=== PATIENT | male | born 1945 | race Caucasian/White ===

== ENCOUNTER 2016-10-22 06:48 | Day surgery (SDC) | payer OTHER ==
[~2016-10-22] VITALS: Ht 167.6 cm; Wt 69.0 kg
[~2016-10-22 06:48] MED LIST: AMIODARONE HCL200 MG PO; ASPIR-LOW81 MG PO; CITALOPRAM HBR40 MG PO; GABAPENTIN300 MG PO; IMDUR60 MG PO; LANTUS 10100 UNITS/ SC; LEVOTHYROXINE125 MCG PO; METOPROLOL TART25 MG PO; NOVOLOG 10100 UNITS/ SC; OMEPRAZOLE20 MG PO; PLAVIX75 MG PO; TUMS500 MG PO
[2016-10-22 07:43] LABS: POINT-OF-CARE METER ID UU13113696
[2016-10-22 08:54] LABS: METH RESISTANT S AUREUS PCR NEGATIVE (NEGATIVE)
[2016-10-22 08:58] LABS: PROBE CHECK PASS; SPECIMEN PROCESSING CONTROL PASS
== END 2016-10-22 10:00 | disposition home or self-care (01) ==
LOC: CATH 06:48
PROVIDERS: Surgery
DX: T82.858A Stenosis of other vascular prosthetic devices, implants and grafts, initial encounter (principal); Y83.2 Surgical operation with anastomosis, bypass or graft as the cause of abnormal reaction of the patient, or of later complication, without mention of misadventure at the time of the procedure; E11.22 Type 2 diabetes mellitus with diabetic chronic kidney disease; N18.6 End stage renal disease; Z99.2 Dependence on renal dialysis; I25.10 Atherosclerotic heart disease of native coronary artery without angina pectoris; I25.2 Old myocardial infarction; M19.90 Unspecified osteoarthritis, unspecified site; Z85.51 Personal history of malignant neoplasm of bladder; Z85.05 Personal history of malignant neoplasm of liver; Z89.519 Acquired absence of unspecified leg below knee; Z79.82 Long term (current) use of aspirin; Z87.891 Personal history of nicotine dependence
CPT/HCPCS: 82948; 87641; C1725; C1769; C1894; J1644

== ENCOUNTER 2016-12-04 08:55 | Day surgery (SDC) | payer OTHER ==
[~2016-12-04] VITALS: Ht 167.6 cm; Wt 69.7 kg
[2016-12-04] MEDS ORDERED: CONSTULOSE10 GM/15 M PO (09:22)
[2016-12-04 09:33] LABS: POINT-OF-CARE METER ID UU14174212
[2016-12-04 09:43] LABS: HEMATOCRIT 28.3 % (38.0-50.0); MCH 30.3 PG (29.0-34.0); MCHC 31.1 G/DL (30.0-36.0); MCV 97.6 FL (86-99); MEAN PLAT.VOLUME 10.5 uM^3 (9.0-12.4); PLATELET COUNT 103 K/uL (156-360); RBC DIS.WIDTH-CV 15.4 % (11.8-14.6); RBC DIS.WIDTH-SD 53.8 % (39-53)
[2016-12-04 10:02] LABS: ANION GAP 11 MEQ/L (2-14); CHLORIDE 97 MEQ/L (99-109); POTASSIUM 5.1 MEQ/L (3.7-5.4); SAMPLE HEMOLYSIS CHECK 0; SAMPLE ICTERIC CHECK 0; SAMPLE LIPEMIA CHECK 0; SODIUM 135 MEQ/L (136-147)
[2016-12-04 10:07] LABS: GFR ESTIMATE (CALCULATED) 9 mL/min/; GLUCOSE 191 mg/dL (70-99); UREA NITROGEN (BUN) 33 mg/dL (9-23)
[2016-12-04 10:28] VITALS: BP 134/60
[2016-12-04 11:15] LABS: METH RESISTANT S AUREUS PCR NEGATIVE (NEGATIVE)
[2016-12-04 11:16] LABS: PROBE CHECK PASS; SPECIMEN PROCESSING CONTROL PASS
[2016-12-04 13:38] LABS: POINT-OF-CARE METER ID UU13113675
[2016-12-04 14:40] VITALS: BP 124/59
[2016-12-04 15:40] VITALS: BP 101/50
[2016-12-04 18:00] VITALS: BP 110/52
== END 2016-12-04 18:20 | disposition home or self-care (01) ==
LOC: SDC 08:55
PROVIDERS: Surgery
DX: E11.22 Type 2 diabetes mellitus with diabetic chronic kidney disease (principal); N18.6 End stage renal disease; Z99.2 Dependence on renal dialysis; I95.3 Hypotension of hemodialysis; E03.9 Hypothyroidism, unspecified; K21.9 Gastro-esophageal reflux disease without esophagitis; Z95.0 Presence of cardiac pacemaker; Z87.891 Personal history of nicotine dependence; I25.2 Old myocardial infarction; Z79.02 Long term (current) use of antithrombotics/antiplatelets; Z79.82 Long term (current) use of aspirin; Z79.4 Long term (current) use of insulin
CPT/HCPCS: 71020; 80048; 82948; 85027; 87641; J0690; J1644; J2250; J2405; J2720; J3010